=== PATIENT | male | born 1985 ===

== ENCOUNTER 2016-07-09 21:53 | Emergency (ER) | payer BC ==
[~2016-07-09] VITALS: Ht 177.8 cm; Wt 78.4 kg
[2016-07-09 22:14] VITALS: TEMP 37.2; Ht 177.8 cm; Wt 78.4 kg
[2016-07-09] MEDS ORDERED: DOXYCYCLINE HYCLATE 100 MG CAP PO STA (23:31)
--- NOTE | 2016-07-09 23:32 | EMERGENCY ROOM VISIT NOTE ---
History Report prepared by Joni: Dariel Miranda Under the Supervision of: Dr. Alexis Vanegas M.D. First contact with patient: 23:25 Chief Complaint: BITE Stated Complaint: TICK BITE W/ SPOT IN [place] REGION History of Present Illness The patient is a 31 year old male who presents to the Emergency Room after being bit by a tick about 52 hours ago. The tick bit him in the back of his right leg. The patient was able to pull the tick out and noted that it was still moving after he pulled it out. The patient complains of some tenderness where the bite is. He thinks he got a tetanus shot 2 years ago. He denies any other medical complaints at this time. Source of History: patient Onset: about 52 hours ago Position: leg (right) Note: Other associated symptoms: tenderness around the tick bite Denies: any other medical complaints at this time Review of Systems See HPI for pertinent positives & negatives. A total of 6 systems reviewed and were otherwise negative. Past Medical & Surgical Medical Problems: (1) No pertinent past medical history Family History No pertinent family history Social History Smoking Status: Never Smoker Marital Status: single Occupation Status: employed Current/Historical Medications No Active Prescriptions or Reported Meds Physical Exam Vital Signs Date Time Temp Pulse Resp B/P Pulse Ox O2 Delivery O2 Flow Rate FiO2 07/09/16 23:52 80 16 150/70 99 07/09/16 22:14 37.2 88 18 146/85 98 Room Air Physical Exam GENERAL: Patient is well appearing and in no acute distress. HEENT: No acute trauma, normocephalic atraumatic, mucous membranes moist, no nasal congestion, no scleral icterus. NECK: No stridor, no adenopathy, no meningismus, trachea is midline. LUNGS: No dyspnea. Clear to auscultation and equal bilaterally. No wheeze, no rhonchi. HEART: Regular rate and rhythm. No murmurs, rubs, gallops appreciated. EXTREMITIES: Normal motion all extremities, no cyanosis, no edema. NEUROLOGIC: Alert and oriented, no acute motor or sensory deficits, no focal weakness, cranial nerves grossly intact. SKIN: No rash, no jaundice, no diaphoresis., Small right posterior less than 1 cm erythematous region at site of tick removal, no foreign body appreciated, no fluctuance, no abscess, no streaking appreciated. Medical Decision & Procedures Medications Administered Medications (Trade) Dose Ordered Sig/Frances Route Start Time Stop Time Status Last Admin Dose Admin Doxycycline Hyclate (Vibramycin Cap) 200 mg NOW STAT PO 07/09/16 23:31 07/09/16 23:33 DC 07/09/16 23:40 200 MG ED Course 2328: The patient was evaluated in room D9. A complete history and physical exam was performed. 2331: Ordered Vibramycin Cap 200 mg PO. 0003: Reevaluated the patient. Discussed results and discharge instructions: He verbalized understanding and agreement. The patient is ready for discharge. Medical Decision 31 yr old male with posterior knee tick bite. Tick removed in whole by pt [employer]. Tick is alive and looks fully intact. No significant engorged though presumed prolonged attachment and with skin findings seems reasonable to treat with Doxy x1 per ID guidelines. He does not need prolonged treatment. No bulls eye rash. No joint pains, palpitations, headache, neuro deficits, etc to suggest fulminant Lyme. Discussed symptoms to monitor for. Stable at discharge. Impression Primary Impression: Tick bite Scribe Attestation The scribe's documentation has been prepared under my direction and personally reviewed by me in its entirety. I confirm that the note above accurately reflects all work, treatment, procedures, and medical decision making performed by me. Departure Information Dispostion Home / Self-Care Prescriptions No Active Prescriptions or Reported Meds Referrals No Doctor, Assigned (PCP) Forms HOME CARE DOCUMENTATION FORM, IMPORTANT VISIT INFORMATION Patient Instructions Bites Tick, My [facility] Health Problem Qualifiers Primary Impression: Tick bite Encounter type: initial encounter Qualified Codes: W57.XXXA - Bitten or stung by nonvenomous insect and other nonvenomous arthropods, initial encounter
[2016-07-09 23:52] VITALS: BP 150/70; PULSE 80; O2SAT 99
== END 2016-07-09 23:53 | disposition home or self-care (01) ==
LOC: C.EDB 21:55 → C.EDD 23:53
DX: S80.861A Insect bite (nonvenomous), right lower leg, initial encounter (principal); W57.XXXA Bitten or stung by nonvenomous insect and other nonvenomous arthropods, initial encounter; Y92.89 Other specified places as the place of occurrence of the external cause